=== PATIENT | male | born 1990 | race Caucasian/White ===

== ENCOUNTER 2021-09-09 16:45 | Emergency (ER) | payer BC ==
[2021-09-09] MEDS ORDERED: Ketorolac 60 MG/2 ML SDV IM ONE (17:08)
== END 2021-09-09 18:58 | disposition home or self-care (01) ==
LOC: JD.ED 16:45
DX: R51.9 Headache, unspecified (principal); Z87.820 Personal history of traumatic brain injury
CPT/HCPCS: 70450; 96372; 99283; J1885

== ENCOUNTER 2023-01-06 13:53 | Emergency (ER) | payer BC ==
[2023-01-06 15:32] LABS: BASOPHILS ABSOLUTE AUTO 0.03 K/mm3 (0.01-0.08); BASOPHILS PERCENT AUTO 0.5 % (0.1-1.2); EOSINOPHILS ABSOLUTE AUTO 0.14 K/mm3 (0.04-0.54); EOSINOPHILS PERCENT AUTO 2.1 (0.8-7.0); HEMATOCRIT 41.7 % (40.1-51.0); HEMOGLOBIN 14.2 gm/dl (13.7-17.5); IMMATURE GRAN ABSOLUTE AUTO 0.02 K/mm3 (0.00-0.10); IMMATURE GRAN PERCENT AUTO 0.3 % (<=1.0); LYMPHOCYTES ABSOLUTE AUTO 1.73 K/mm3 (1.32-3.57); MEAN CORPUSCULAR HEMOGLOBIN 30.4 pg (25.7-32.2); MEAN CORPUSCULAR HGB CONC 34.1 g/dl (32.2-35.5); MEAN CORPUSCULAR VOLUME 89.3 fl (79.0-92.2); MONOCYTES ABSOLUTE AUTO 0.76 K/mm3 (0.30-0.82); MONOCYTES PERCENT AUTO 11.4 % (5.3-12.2); NEUTROPHILS ABSOLUTE AUTO 3.98 K/mm3 (1.78-5.38); NEUTROPHILS PERCENT AUTO 59.7 % (34.0-67.9); PLATELET COUNT,PLT 163 K/mm3 (163-337); RED BLOOD CELL COUNT 4.67 M/mm3 (4.63-6.08); WHITE BLOOD CELL COUNT,WBC 6.66 K/mm3 (4.23-9.07)
[2023-01-06 15:54] LABS: A/G RATIO 1.4 (1-2); ALBUMIN 4.1 g/dl (3.4-5.0); ANION GAP 11.7 (5-15); BILIRUBIN TOTAL 0.3 mg/dL (0.2-1.0); BUN/CREATININE RATIO 17.8 (14-18); CALCIUM 8.6 mg/dL (8.5-10.1); CREATININE 0.9 mg/dL (0.7-1.3); EST CRCL DRUG DOSING (CG) 114.45 mL/min; POTASSIUM,K 3.7 mEq/L (3.5-5.1)
[2023-01-06] MEDS ORDERED: Sucralfate Suspension 1 GM/10 ML Cup PO ONE (17:06)
== END 2023-01-06 17:35 | disposition home or self-care (01) ==
LOC: MERGE 13:53 → JD.ED 13:53
DX: K21.00 Gastro-esophageal reflux disease with esophagitis, without bleeding (principal); Z88.0 Allergy status to penicillin
CPT/HCPCS: 36415; 80053; 84484; 85025; 93005; 93010; 99284; 99285